=== PATIENT | male | born 1950 | race Caucasian/White ===

== ENCOUNTER 2017-10-19 23:07 | Emergency (ER) | payer OTHER ==
[~2017-10-19] VITALS: Ht 177.8 cm; Wt 115.2 kg
[~2017-10-19 23:07] MED LIST: ACET325 PO; ALBIPROI INH; ALBU90OI INH; AMLODIPINE-VAL1 EAC1 PO; B-COMPLEX WITH1 EAC1 PO; BUPR100 PO; BUPR150ER PO; CEPH500 PO; CIPR500 PO; CLIN300 PO; Cialis20 MG PO; FLUT1DIS5 INH; FLUT44OIA; GUAI600T33 PO; LAMO5 PO; MOMENI; Mucinex Dm Tab1 EAC1; OMEP20ER PO; PSEHYDGUAL; UNKNOWN B/P MED; Viagra100 MG PO
== END 2017-10-20 00:49 | disposition home or self-care (01) ==
LOC: ER 23:07
DX: S81.811A Laceration without foreign body, right lower leg, initial encounter (principal); Z23 Encounter for immunization; J45.909 Unspecified asthma, uncomplicated; I10 Essential (primary) hypertension; F17.210 Nicotine dependence, cigarettes, uncomplicated; Z88.6 Allergy status to analgesic agent; Z88.8 Allergy status to other drugs, medicaments and biological substances; Z79.899 Other long term (current) drug therapy; W10.9XXA Fall (on) (from) unspecified stairs and steps, initial encounter
CPT/HCPCS: 12002; 90471; 90714; 99283

== ENCOUNTER → 2018-06-11 | Outpatient (CLI) | payer OTHER ==
[2018-06-11 18:00] LABS: Microalbumin, Urine Quant. <5.000 mg/L (0.000-20.000); Protein, Urine Quantitative <5.0 mg/dL (0.0-11.9)
== END | disposition home or self-care (01) ==
LOC: LAB 16:53 → LAB SHORT 16:53
PROVIDERS: Internal Medicine Nephrology
DX: N18.3 Chronic kidney disease, stage 3 (moderate) (principal); D63.1 Anemia in chronic kidney disease; N25.81 Secondary hyperparathyroidism of renal origin; E55.9 Vitamin D deficiency, unspecified; E78.00 Pure hypercholesterolemia, unspecified; D52.8 Other folate deficiency anemias; D51.8 Other vitamin B12 deficiency anemias; D50.9 Iron deficiency anemia, unspecified; R94.5 Abnormal results of liver function studies; R94.6 Abnormal results of thyroid function studies; R79.9 Abnormal finding of blood chemistry, unspecified
CPT/HCPCS: 81050; 82043; 82570; 84156

== ENCOUNTER → 2018-07-19 | Outpatient (CLI) | payer OTHER ==
[2018-07-19 15:19] LABS: Adenovirus F 40/41 Not Detected (NOT DETECT); Astrovirus Not Detected (NOT DETECT); Campylobacter Sp Not Detected (NOT DETECT); Cryptosporidium Not Detected (NOT DETECT); Cyclospora Cayetanensis Not Detected (NOT DETECT); E. Coli O157 Not Detected (NOT DETECT); Entamoeba Histolytica Not Detected (NOT DETECT); Enteroaggregative E. coli-EAEC Not Detected (NOT DETECT); Enteropathogenic E. coli-EPEC Not Detected (NOT DETECT); Enterotoxigenic E. coli-ETEC Not Detected (NOT DETECT); Giardia Lamblia Not Detected (NOT DETECT); Norovirus GI/GII Not Detected (NOT DETECT); Plesiomonas Shigelloides Not Detected (NOT DETECT); Rotavirus A Not Detected (NOT DETECT); Salmonella Sp Not Detected (NOT DETECT); Sapovirus Not Detected (NOT DETECT); Shiga Toxin-prod E. coli-STEC Not Detected (NOT DETECT); Shigella/Enteroin E. coli-EIEC Not Detected (NOT DETECT); Vibrio Cholerae Not Detected (NOT DETECT); Vibrio Sp Not Detected (NOT DETECT); Yersinia Enterocolitica Not Detected (NOT DETECT)
== END | disposition home or self-care (01) ==
LOC: LAB SHORT 11:00 → LAB 11:00
PROVIDERS: Internal Medicine Nephrology
DX: R19.7 Diarrhea, unspecified (principal)
CPT/HCPCS: 87507

== ENCOUNTER → 2019-02-26 | Outpatient (CLI) | payer OTHER | LOC: LAB 14:39 → LAB SHORT 14:39 | DX: L71.8 Other rosacea (principal); L81.4 Other melanin hyperpigmentation; L82.1 Other seborrheic keratosis; D22.5 Melanocytic nevi of trunk; D22.71 Melanocytic nevi of right lower limb, including hip; D22.72 Melanocytic nevi of left lower limb, including hip; D48.5 Neoplasm of uncertain behavior of skin | CPT/HCPCS: 87081 ==

== ENCOUNTER → 2019-05-15 | Outpatient (CLI) | payer OTHER ==
[2019-05-15 14:40] LABS: Hemoglobin 15.3 g/dL (13.5-17.5); Mean Corpuscular HGB 32.8 pg (26.0-34.0); Mean Corpuscular Volume 96 fL (80-100); RDW Coefficient Variation 12.6 % (11.7-14.2); RDW Standard Deviation 44.7 fL (35.1-46.3); Red Blood Cell Count 4.67 M/mm3 (4.30-5.90); White Blood Cell Count 7.82 K/mm3 (4.00-11.30)
[2019-05-15 14:45] LABS: Alanine Aminotransfer (ALT/SGP 36 U/L (12-78); Albumin/Globulin Ratio 1.3 (0.8-1.8); Alk Phos 92 U/L (40-126); Anion Gap 12 mmol/L (6-16); Aspartate Aminotrans (AST/SGOT 28 U/L (12-37); Bilirubin, Total 0.9 mg/dL (0.1-1.0); Blood Urea Nitrogen 11 mg/dL (8-24); Bun/Creatinine Ratio 16.2 (12.0-20.0); CO2, Blood 23 mmol/L (21-32); Calcium, Blood 8.9 mg/dL (8.5-10.1); Chloride, Blood 107 mmol/L (98-108); Creatinine, Blood 0.68 mg/dL (0.60-1.20); Globulin, Blood 3.2 g/dL (2.2-4.0); Glomerular Filtration Rate >60 (60-); Glucose, Blood 102 mg/dL (70-99); Potassium, Blood 4.7 mmol/L (3.5-5.5); Sodium, Blood 142 mmol/L (136-145); Total Protein, Blood 7.2 g/dL (6.4-8.2)
[2019-05-15 16:27] LABS: Mean Platelet Volume 10.1 fL (9.1-12.4); Platelet Count 191 K/mm3 (150-400)
[2019-05-15 16:32] LABS: BASOPHILS PERCENT MAN 0 % (0-2); EOSINOPHILS ABSOLUTE MAN 1.48 K/mm3 (0.00-0.68); EOSINOPHILS PERCENT MAN 19 % (0-6); LYMPHOCYTES ABSOLUTE MAN 1.95 K/mm3 (0.84-5.20); LYMPHOCYTES PERCENT MAN 25 % (21-46); MONOCYTES ABSOLUTE MAN 0.39 K/mm3 (0.16-1.47); MONOCYTES PERCENT MAN 5 % (4-13); NEUTROPHILS ABSOLUTE MAN 3.98 K/mm3 (1.96-9.15); SEG NEUTROPHILS PERCENT MAN 51 % (41-73); TOTAL CELLS COUNTED 100
== END | disposition home or self-care (01) ==
LOC: LAB SHORT 14:29 → LAB EV 14:29
PROVIDERS: Physician Assistant Surgical
DX: R10.9 Unspecified abdominal pain (principal)
CPT/HCPCS: 80053; 83690; 85025

== ENCOUNTER → 2019-06-22 | Outpatient (CLI) | payer OTHER ==
[2019-06-22 16:41] LABS: Source, Urine Voided
[2019-06-22 19:13] LABS: Red Blood Cells, Urine 0-2 /hpf (0-2)
[2019-06-22 19:14] LABS: Bacteria Mod /hpf; Squamous Epithelial Cells Not Seen /hpf (Few)
== END | disposition home or self-care (01) ==
LOC: LAB 13:00 → LAB SHORT 13:00
PROVIDERS: Family Medicine
DX: R10.9 Unspecified abdominal pain (principal)
CPT/HCPCS: 81015

== ENCOUNTER → 2019-11-10 | Outpatient (CLI) | payer OTHER ==
[2019-11-10 17:33] LABS: BASOPHILS ABSOLUTE AUTO 0.05 K/mm3 (0.00-0.23); BASOPHILS PERCENT AUTO 1 % (0-2); EOSINOPHILS ABSOLUTE AUTO 0.45 K/mm3 (0.00-0.68); EOSINOPHILS PERCENT AUTO 7 % (0-6); Hematocrit 40.7 % (37.0-53.0); Hemoglobin 14.4 g/dL (13.5-17.5); IMMATURE GRAN ABSOLUTE AUTO 0.01 K/mm3 (0.00-0.10); IMMATURE GRAN PERCENT AUTO 0 % (0-1); LYMPHOCYTES ABSOLUTE AUTO 1.49 K/mm3 (0.84-5.20); LYMPHOCYTES PERCENT AUTO 22 % (21-46); MONOCYTES ABSOLUTE AUTO 0.55 K/mm3 (0.16-1.47); MONOCYTES PERCENT AUTO 8 % (4-13); Mean Corpuscular HGB 33.1 pg (26.0-34.0); Mean Corpuscular HGB Conc 35.4 g/dL (31.5-36.5); Mean Corpuscular Volume 94 fL (80-100); Mean Platelet Volume 9.5 fL (9.1-12.4); NEUTROPHILS ABSOLUTE AUTO 4.19 K/mm3 (1.96-9.15); NEUTROPHILS PERCENT AUTO 62 % (41-73); Platelet Count 257 K/mm3 (150-400); RDW Coefficient Variation 12.6 % (11.7-14.2); RDW Standard Deviation 43.6 fL (35.1-46.3); Red Blood Cell Count 4.35 M/mm3 (4.30-5.90); White Blood Cell Count 6.74 K/mm3 (4.00-11.30)
[2019-11-10 17:43] LABS: Alanine Aminotransfer (ALT/SGP 69 U/L (12-78); Albumin, Blood 4.2 g/dL (3.4-5.0); Albumin/Globulin Ratio 1.2 (0.8-1.8); Alk Phos 96 U/L (40-126); Anion Gap 10 mmol/L (6-16); Aspartate Aminotrans (AST/SGOT 33 U/L (12-37); Bilirubin, Total 0.5 mg/dL (0.1-1.0); Blood Urea Nitrogen 8 mg/dL (8-24); Bun/Creatinine Ratio 8.5 (12.0-20.0); CO2, Blood 26 mmol/L (21-32); Calcium, Blood 8.8 mg/dL (8.5-10.1); Chloride, Blood 106 mmol/L (98-108); Creatinine, Blood 0.94 mg/dL (0.60-1.20); Globulin, Blood 3.5 g/dL (2.2-4.0); Glomerular Filtration Rate >60 (60-); Glucose, Blood 106 mg/dL (70-99); Potassium, Blood 4.1 mmol/L (3.5-5.5); Sodium, Blood 142 mmol/L (136-145); Total Protein, Blood 7.7 g/dL (6.4-8.2)
== END | disposition home or self-care (01) ==
LOC: LAB SHORT 17:28 → LAB EV 17:28
PROVIDERS: Physician Assistant
DX: R10.9 Unspecified abdominal pain (principal)
CPT/HCPCS: 80053; 83690; 85025

== ENCOUNTER 2019-11-30 19:31 | Emergency (ER) | payer OTHER ==
[~2019-11-30] VITALS: Ht 177.8 cm; Wt 111.1 kg
[2019-11-30] MEDS ORDERED: LOSA25 PO (19:51)
== END 2019-11-30 22:16 | disposition home or self-care (01) ==
LOC: ER 19:31
DX: S01.21XA Laceration without foreign body of nose, initial encounter (principal); I10 Essential (primary) hypertension; J45.909 Unspecified asthma, uncomplicated; Z88.6 Allergy status to analgesic agent; Z88.8 Allergy status to other drugs, medicaments and biological substances; Z79.899 Other long term (current) drug therapy; F17.210 Nicotine dependence, cigarettes, uncomplicated; W19.XXXA Unspecified fall, initial encounter
CPT/HCPCS: 70450; 70486; 72125; 99284-25

== ENCOUNTER → 2020-04-03 | Outpatient (CLI) | payer OTHER ==
[~2020-04-03] MED LIST changes: +LOSA25 PO
== END | disposition home or self-care (01) ==
LOC: LAB EV 12:28 → LAB SHORT 12:28
DX: J40 Bronchitis, not specified as acute or chronic (principal); Z20.828 Contact with and (suspected) exposure to other viral communicable diseases
CPT/HCPCS: U0003

== ENCOUNTER 2024-05-28 11:12 | Emergency (ER) | payer OTHER ==
[~2024-05-28] VITALS: Ht 177.8 cm; Wt 90.7 kg
[2024-05-28 13:41] LABS: BASOPHILS ABSOLUTE AUTO 0.04 K/mm3 (0.00-0.23); BASOPHILS PERCENT AUTO 1 % (0-2); EOSINOPHILS ABSOLUTE AUTO 0.22 K/mm3 (0.00-0.68); EOSINOPHILS PERCENT AUTO 3 % (0-6); Hematocrit 40.5 % (37.0-53.0); IMMATURE GRAN ABSOLUTE AUTO 0.03 K/mm3 (0.00-0.10); IMMATURE GRAN PERCENT AUTO 0 % (0-1); LYMPHOCYTES ABSOLUTE AUTO 0.73 K/mm3 (0.84-5.20); LYMPHOCYTES PERCENT AUTO 9 % (21-46); MONOCYTES ABSOLUTE AUTO 0.61 K/mm3 (0.16-1.47); MONOCYTES PERCENT AUTO 8 % (4-13); Mean Corpuscular HGB 30.6 pg (26.0-34.0); Mean Corpuscular HGB Conc 34.6 g/dL (31.5-36.5); Mean Corpuscular Volume 89 fL (80-100); Mean Platelet Volume 9.6 fL (9.1-12.4); NEUTROPHILS ABSOLUTE AUTO 6.24 K/mm3 (1.96-9.15); NEUTROPHILS PERCENT AUTO 79 % (41-73); Platelet Count 224 K/mm3 (150-400); RDW Coefficient Variation 12.8 % (11.7-14.2); RDW Standard Deviation 41.8 fL (35.1-46.3); Red Blood Cell Count 4.57 M/mm3 (4.30-5.90); White Blood Cell Count 7.87 K/mm3 (4.00-11.30)
[2024-05-28 14:06] LABS: Bun/Creatinine Ratio 13.6 (12.0-20.0); Calcium, Blood 9.1 mg/dL (8.5-10.1); Creatinine, Blood 0.88 mg/dL (0.60-1.20); Free Thyroxine 1.2 ng/dL (0.70-1.60); Magnesium, Blood 2.9 mg/dL (1.6-2.4); Potassium, Blood 3.9 mmol/L (3.5-5.5); Thyroid Stimulating Hormone 1.37 uIU/mL (0.360-4.800)
[2024-05-28 15:07] LABS: Source, Urine Clean Catch
[2024-05-28 15:09] LABS: Appearance, Urine Clear (Clear); Bilirubin, Urine Neg (Neg); Blood, Urine 4+ (Neg); Color, Urine Yellow (P-Yellow); Glucose Qualitative, Urine Neg (Neg); Ketones, Urine 1+ (Neg); Leukocyte Esterase, Urine Neg (Neg); Nitrite, Urine Neg (Neg); Protein, Urine Neg (Neg); Urobilinogen, Urine NORM (Normal)
[2024-05-28 15:22] LABS: Red Blood Cells, Urine 25-50 /hpf (0-2); White Blood Cells, Urine 0-2 /hpf (0-5)
[2024-05-28 15:23] LABS: Bacteria Rare /hpf; Squamous Epithelial Cells Not Seen /hpf (Few)
[2024-05-28] MEDS ORDERED: ACET500 PO (16:55)
[2024-05-28] MEDS ORDERED: LIDO700A20 TOP (16:55)
[2024-05-29] MEDS ORDERED: SEROQUEL25 MG PO (10:04)
[2024-05-29 12:17] VITALS: BP 146/84
== END 2024-05-29 12:17 | disposition home or self-care (01) ==
LOC: ER 11:12
PROVIDERS: Emergency Medicine
DX: S06.30AA Unspecified focal traumatic brain injury with loss of consciousness status unknown, initial encounter (principal); M25.562 Pain in left knee; J45.909 Unspecified asthma, uncomplicated; I10 Essential (primary) hypertension; F17.210 Nicotine dependence, cigarettes, uncomplicated; W18.30XA Fall on same level, unspecified, initial encounter; Z79.899 Other long term (current) drug therapy; Z88.6 Allergy status to analgesic agent; Z88.1 Allergy status to other antibiotic agents
CPT/HCPCS: 70450; 73502; 74176; 80048; 81001; 83735; 84439; 84443; 85025; 97162; 97530; 99285-25

== ENCOUNTER 2024-06-04 16:13 | Emergency (ER) | payer OTHER ==
[~2024-06-04] VITALS: Ht 182.9 cm; Wt 106.6 kg
[~2024-06-04 16:13] MED LIST changes: +ACET500 PO; +LIDO700A20 TOP; +SEROQUEL25 MG PO
[2024-06-04 17:37] LABS: BASOPHILS ABSOLUTE AUTO 0.04 K/mm3 (0.00-0.23); BASOPHILS PERCENT AUTO 1 % (0-2); EOSINOPHILS ABSOLUTE AUTO 0.15 K/mm3 (0.00-0.68); EOSINOPHILS PERCENT AUTO 2 % (0-6); Hematocrit 39.3 % (37.0-53.0); Hemoglobin 13.5 g/dL (13.5-17.5); IMMATURE GRAN ABSOLUTE AUTO 0.04 K/mm3 (0.00-0.10); IMMATURE GRAN PERCENT AUTO 1 % (0-1); LYMPHOCYTES ABSOLUTE AUTO 1.13 K/mm3 (0.84-5.20); LYMPHOCYTES PERCENT AUTO 14 % (21-46); MONOCYTES ABSOLUTE AUTO 0.71 K/mm3 (0.16-1.47); MONOCYTES PERCENT AUTO 9 % (4-13); Mean Corpuscular HGB 30.8 pg (26.0-34.0); Mean Corpuscular HGB Conc 34.4 g/dL (31.5-36.5); Mean Corpuscular Volume 90 fL (80-100); Mean Platelet Volume 9.5 fL (9.1-12.4); NEUTROPHILS ABSOLUTE AUTO 6.31 K/mm3 (1.96-9.15); NEUTROPHILS PERCENT AUTO 75 % (41-73); Platelet Count 206 K/mm3 (150-400); RDW Coefficient Variation 12.8 % (11.7-14.2); RDW Standard Deviation 42.2 fL (35.1-46.3); Red Blood Cell Count 4.39 M/mm3 (4.30-5.90); White Blood Cell Count 8.38 K/mm3 (4.00-11.30)
[2024-06-04 17:40] LABS: CORONAVIRUS COVID-19 AG Negative (NEGATIVE); INFLUENZA A AG Negative (NEGATIVE); INFLUENZA B AG Negative (NEGATIVE)
[2024-06-04 18:04] LABS: Albumin, Blood 3.5 g/dL (3.4-5.0); Albumin/Globulin Ratio 0.9 (0.8-1.8); Bilirubin, Total 0.9 mg/dL (0.1-1.0); Bun/Creatinine Ratio 17.1 (12.0-20.0); Calcium, Blood 9.2 mg/dL (8.5-10.1); Creatinine, Blood 0.65 mg/dL (0.60-1.20); Globulin, Blood 3.8 g/dL (2.2-4.0); Potassium, Blood 3.9 mmol/L (3.5-5.5); Total Protein, Blood 7.3 g/dL (6.4-8.2)
[2024-06-04] MEDS ORDERED: Azithromycin 500 MG in NS 250 ML IV ONE (19:15)
[2024-06-04] MEDS ORDERED: CefTRIAXone Sodium 1,000 MG in NS 100 ML IV ONE (19:15)
[2024-06-04] MEDS ORDERED: DOXY100 PO (19:41)
[2024-06-04] MEDS ORDERED: AMOCLA875 PO (19:41)
[2024-06-04] MEDS ORDERED: Doxycycline Hyclate 100 MG TAB PO ONE (19:45)
[2024-06-04 20:30] VITALS: BP 146/73
== END 2024-06-04 20:55 | disposition home or self-care (01) ==
LOC: ER 16:13
PROVIDERS: Emergency Medicine
DX: J18.9 Pneumonia, unspecified organism (principal); J45.909 Unspecified asthma, uncomplicated; I10 Essential (primary) hypertension; F17.210 Nicotine dependence, cigarettes, uncomplicated; Z79.899 Other long term (current) drug therapy; Z88.6 Allergy status to analgesic agent; Z88.1 Allergy status to other antibiotic agents
CPT/HCPCS: 70450; 71045; 72125; 72128; 72131; 80053; 84484; 85025; 87428-QW; 93005; 93010; 96365; 99285-25; A9270; J0456; J0696; J7050

== ENCOUNTER 2024-06-06 11:20 | Inpatient (IN) | payer OTHER ==
[~2024-06-06] VITALS: Ht 182.9 cm; Wt 98.6 kg
[~2024-06-06 11:20] MED LIST changes: +AMOCLA875 PO; +DOXY100 PO
[2024-06-06] MEDS ORDERED: ESCI10 PO (11:35)
[2024-06-06] MEDS ORDERED: MEMANTINE HCL511 PO (11:35)
[2024-06-06] MEDS ORDERED: LORAZEPAM0.5 MG PO (11:35)
[2024-06-06] MEDS ORDERED: NS 1,000 ML IV SCH (11:35)
[2024-06-06 13:31] LABS: Influenza A, PCR NEGATIVE (NEGATIVE); Influenza B, PCR NEGATIVE (NEGATIVE); Resp Syncytial Virus, PCR NEGATIVE (NEGATIVE); SARS-Cov-2 (COVID-19) PCR, MMC NEGATIVE (NEGATIVE)
[2024-06-06 14:19] LABS: Albumin, Blood 3.2 g/dL (3.4-5.0); Albumin/Globulin Ratio 0.8 (0.8-1.8); Bilirubin, Total 1.5 mg/dL (0.1-1.0); Bun/Creatinine Ratio 22.5 (12.0-20.0); Calcium, Blood 8.8 mg/dL (8.5-10.1); Creatinine, Blood 1.02 mg/dL (0.60-1.20); Potassium, Blood 3.6 mmol/L (3.5-5.5); Total Protein, Blood 7.2 g/dL (6.4-8.2)
[2024-06-06 14:21] LABS: Hematocrit 39.3 % (37.0-53.0); Hemoglobin 13.5 g/dL (13.5-17.5); Mean Corpuscular HGB 30.4 pg (26.0-34.0); Mean Corpuscular HGB Conc 34.4 g/dL (31.5-36.5); Mean Corpuscular Volume 89 fL (80-100); Mean Platelet Volume 9.7 fL (9.1-12.4); Platelet Count 231 K/mm3 (150-400); RDW Coefficient Variation 13.1 % (11.7-14.2); RDW Standard Deviation 42.2 fL (35.1-46.3); Red Blood Cell Count 4.44 M/mm3 (4.30-5.90); White Blood Cell Count 5.01 K/mm3 (4.00-11.30)
[2024-06-06 14:41] LABS: BAND PERCENT MAN 5 % (0-8); BASOPHILS PERCENT MAN 0 % (0-2); EOSINOPHILS ABSOLUTE MAN 0.05 K/mm3 (0.00-0.68); EOSINOPHILS PERCENT MAN 1 % (0-6); LYMPHOCYTES ABSOLUTE MAN 0.25 K/mm3 (0.84-5.20); LYMPHOCYTES PERCENT MAN 5 % (21-46); MONOCYTES ABSOLUTE MAN 0.25 K/mm3 (0.16-1.47); MONOCYTES PERCENT MAN 5 % (4-13); NEUTROPHILS ABSOLUTE MAN 4.45 K/mm3 (1.96-9.15); SEG NEUTROPHILS PERCENT MAN 84 % (41-73); TOTAL CELLS COUNTED 100
[2024-06-06] MEDS ORDERED: CefTRIAXone Sodium 1,000 MG in NS 50 ML IV ONE (15:40)
[2024-06-06] MEDS ORDERED: FLU VACC TS2024-25(6MOS UP)/PF 45 MCG/0.5 ML SYRINGE IM SCH (16:20)
[2024-06-06] MEDS ORDERED: Doxycycline Hyclate 100 MG in Dextrose 5% 250 ML IV SCH (16:28)
[2024-06-06] MEDS ORDERED: Lactated Ringer's 1,000 ML IV SCH (16:30)
[2024-06-06 19:00] LABS: Adenovirus Not Detected (NOT DETECT); Bordetella pertussis Not Detected (NOT DETECT); Chlamydophila pneumoniae Not Detected (NOT DETECT); Coronavirus 229E Not Detected (NOT DETECT); Coronavirus HKU1 Not Detected (NOT DETECT); Coronavirus NL63 Not Detected (NOT DETECT); Coronavirus OC43 Not Detected (NOT DETECT); Human Metapneumovirus Not Detected (NOT DETECT); Human Rhinovirus/Enterovirus Detected (NOT DETECT); Influenza A/2009-H1 Not Detected (NOT DETECT); Influenza A/H1 Not Detected (NOT DETECT); Influenza A/H3 Not Detected (NOT DETECT); Influenza B Not Detected (NOT DETECT); Mycoplasma pneumoniae Not Detected (NOT DETECT); Parainfluenza Virus 1 Not Detected (NOT DETECT); Parainfluenza Virus 2 Not Detected (NOT DETECT); Parainfluenza Virus 3 Not Detected (NOT DETECT); Parainfluenza Virus 4 Not Detected (NOT DETECT); Respiratory Syncytial Virus Not Detected (NOT DETECT); SARS-Cov-2 (COVID-19), BioFire Not Detected (NOT DETECT)
[2024-06-06 19:37] LABS: Base Excess Venous 0.5 mmol/L; Bicarbonate Venous 23.9 mmol/L (24.0-30.0); PCO2 Venous 41.4 mmHg (38-42)
[2024-06-06] MEDS ORDERED: Acetaminophen 325 MG TABLET PO PRN (19:55)
[2024-06-06 20:57] VITALS: BP 152/87
[2024-06-06] MEDS ORDERED: Losartan Potassium 25 MG Tab PO SCH (21:00)
[2024-06-06] MEDS ORDERED: Lactobacil 2-S.Thermo-Bifido 1 1 Cap PO SCH (21:00)
[2024-06-06] MEDS ORDERED: DOXYCYCLINE HY100 M1 PO (23:38)
[2024-06-07] MEDS ORDERED: FentaNYL Citrate 50 MCG/ML 2 ML Injection IV PRN (03:25)
[2024-06-07 04:27] VITALS: BP 148/72
--- NOTE | 2024-06-07 04:52 | NUR ---
SUMMARY: PT A/O TO SELF AND FAMILY W/FREQ REMINDERS REQ'D RE: SITUATION AND PLACE. HE RESTLESS, FIGITY AND UNAWARE OF LIMITATIONS W/BED ALARM ON FOR IMPULSIVITY AND FALL RISK. PT HAS INCREASED WEAKNESS AND REMAINS BEDREST AFTER REQUESTING TO SIT IN CHAIR BUT BEING UNABLE TO SAFELY COMMPREHEND PIVOT T/F INSTRUCTIONS. AND HE'S DENIED NEEDING THE URINAL DESPITE INCONTINENCE T/O NOCTE AND ATTENDS/LINEN CHANGES PRN. LS ARE COARSE W/SCATTERED WHEEZES AND GROUND GLASS OPACITY PER CXR. WET CONGESTED ELEMENTARY EDUCATION TUTOR COUGH PERSISTS BUT SPO2 WNL ON RA W/O S/S RESP DISTRESS. LR INFUSED THEN WAS SL'D AND IV ABX RECEIVED PER EMAR. HE WAS FEBRILE IN ER W/TYLENOL PROVIDED FOR GOOD AFFECT BUT PT REPORTED UNRELIEVED LOW BACK PAIN. EGGCRATE WAS PLACED TO MATTRESS AND FENTANYL WAS RX'D AND RECEIVED FOR GOOD EFFECT. PT FINALLY FELL ASLEEP AND CONT'S TO APPEAR COMFORTABLE AT THIS TIME. VSS/AFEBRILE, NO ACUTE CHANGES. WCTM AND REPORT TO DAY RN.
[2024-06-07 06:59] LABS: BASOPHILS ABSOLUTE AUTO 0.02 K/mm3 (0.00-0.23); BASOPHILS PERCENT AUTO 0 % (0-2); EOSINOPHILS PERCENT AUTO 5 % (0-6); Hematocrit 34.1 % (37.0-53.0); IMMATURE GRAN ABSOLUTE AUTO 0.02 K/mm3 (0.00-0.10); IMMATURE GRAN PERCENT AUTO 0 % (0-1); LYMPHOCYTES ABSOLUTE AUTO 1.03 K/mm3 (0.84-5.20); LYMPHOCYTES PERCENT AUTO 17 % (21-46); MONOCYTES ABSOLUTE AUTO 0.72 K/mm3 (0.16-1.47); MONOCYTES PERCENT AUTO 12 % (4-13); Mean Corpuscular HGB Conc 35.2 g/dL (31.5-36.5); Mean Corpuscular Volume 88 fL (80-100); Mean Platelet Volume 9.4 fL (9.1-12.4); NEUTROPHILS ABSOLUTE AUTO 3.97 K/mm3 (1.96-9.15); NEUTROPHILS PERCENT AUTO 66 % (41-73); Platelet Count 214 K/mm3 (150-400); RDW Coefficient Variation 13.2 % (11.7-14.2); RDW Standard Deviation 42.5 fL (35.1-46.3); Red Blood Cell Count 3.87 M/mm3 (4.30-5.90); White Blood Cell Count 6.06 K/mm3 (4.00-11.30)
[2024-06-07 07:26] LABS: Albumin, Blood 2.7 g/dL (3.4-5.0); Albumin/Globulin Ratio 0.8 (0.8-1.8); Bilirubin, Total 0.9 mg/dL (0.1-1.0); Bun/Creatinine Ratio 14.1 (12.0-20.0); Calcium, Blood 8.4 mg/dL (8.5-10.1); Creatinine, Blood 0.78 mg/dL (0.60-1.20); Globulin, Blood 3.4 g/dL (2.2-4.0); Potassium, Blood 3.6 mmol/L (3.5-5.5); Total Protein, Blood 6.1 g/dL (6.4-8.2)
[2024-06-07 07:29] VITALS: BP 153/72
--- NOTE | 2024-06-07 07:38 | NUR ---
ASSUMED CARE OF PATIENT. LYING SUPINE, SLEEPING. NO ACUTE CONCERNS.
[2024-06-07] MEDS ORDERED: buPROPion HCL 150 MG TAB.SR.12H PO SCH (09:00)
[2024-06-07] MEDS ORDERED: Memantine HCL 5 MG Tab PO SCH (09:00)
[2024-06-07] MEDS ORDERED: CefTRIAXone Sodium 1,000 MG in NS 100 ML IV SCH (09:00)
[2024-06-07] MEDS ORDERED: Enoxaparin 40 MG/0.4 ML SYR SC SCH (09:00)
[2024-06-07] MEDS ORDERED: QUEtiapine Fumarate 25 MG Tab PO SCH (09:00)
[2024-06-07] MEDS ORDERED: Citalopram Hydrobromide 20 MG Tab PO SCH (09:00)
[2024-06-07 15:42] VITALS: BP 116/63
--- NOTE | 2024-06-07 17:23 | NUR ---
SPEECH THERAPY SCHEDULE DID NOT ALLOW FOR REPEAT VISIT. PER DR MELGAR, OKAY TO EAT.
[2024-06-07 19:20] VITALS: BP 120/57
--- NOTE | 2024-06-07 19:40 | NUR ---
END OF DAY SHIFT SUMMARY: A&Ox2-3. PLEASANT AND COOPERATIVE WITH CARE. DOES NOT UTILIZE CALL LIGHT; DAUGHTER, JOSE, IN ROOM ALL DAY, ADVOCATING HIS NEEDS. INCONTINENT; LOG ROLL CHANGES REQUIRED. UNABLE TO BE SEEN BY ST; BEDSIDE EVAL DONE AND YIELDED NO SWALLOW ISSUES; DINNER PROVIDED WITHOUT CONCERN. MEDS WHOLE WITH FLUIDS. MEDICATED x1 PRN PAIN TODAY; SLEPT MUCH OF DAY AFTER RECEIVING PAIN MEDS. BED IN LOWEST POSITION, CALL LIGHT WITHIN REACH, ALL NEEDS MET. REPORT TO ONCOMING NURSE.
[2024-06-07] MEDS ORDERED: QUEtiapine Fumarate 25 MG Tab PO PRN (22:50)
[2024-06-08 03:29] VITALS: BP 131/64
--- NOTE | 2024-06-08 05:05 | NUR ---
DIRECTOR OF ASSISTED LIVING SUMMARY: PT A&O TO SELF AND FAMILY. FAMILY REPORTS AT BEGINNING OF SHIFT THAT PT HAS HAD AN INCREASE IN VISUAL HALLUCINATIONS. PT NOTED TO HAVE INCREASED AGITATION SHIFT PROGRESSED. PT NOTED TO BE PULLING OFF BLANKETS, TALKING ABOUT OBJECTS THAT WERE NOT PRESENT AND DANGLING FEET OFF EDGE OF BED. BED ALARM ON. NEW ORDER RECEIVED FOR: SEROQUEL 25MG PO Q6HRS PRN AGITATION. ADMINISTERED PRN SEROQUEL AT APPROX 2309; EFFECTIVE. PT SLEEPING ON AND OFF THE REST OF SHIFT. POWER GLIDE TO REZA. NO ADVERSE SIDE EFFECTS TO ABO TX. AFEBRILE. MEDICATED X2 WITH PRN FENTANYL 25MCG PER EMAR ORDER; EFFECTIVE. DROPLET CONTACT ISOLATION PRECAUTIONS IN PLACE. CARES CONTINUE ORDERED.
[2024-06-08 07:12] LABS: BASOPHILS ABSOLUTE AUTO 0.02 K/mm3 (0.00-0.23); BASOPHILS PERCENT AUTO 0 % (0-2); EOSINOPHILS ABSOLUTE AUTO 0.33 K/mm3 (0.00-0.68); EOSINOPHILS PERCENT AUTO 5 % (0-6); Hematocrit 33.3 % (37.0-53.0); Hemoglobin 11.7 g/dL (13.5-17.5); IMMATURE GRAN ABSOLUTE AUTO 0.02 K/mm3 (0.00-0.10); IMMATURE GRAN PERCENT AUTO 0 % (0-1); LYMPHOCYTES ABSOLUTE AUTO 0.95 K/mm3 (0.84-5.20); LYMPHOCYTES PERCENT AUTO 14 % (21-46); MONOCYTES ABSOLUTE AUTO 0.76 K/mm3 (0.16-1.47); MONOCYTES PERCENT AUTO 11 % (4-13); Mean Corpuscular HGB 30.8 pg (26.0-34.0); Mean Corpuscular HGB Conc 35.1 g/dL (31.5-36.5); Mean Corpuscular Volume 88 fL (80-100); Mean Platelet Volume 9.3 fL (9.1-12.4); NEUTROPHILS ABSOLUTE AUTO 4.85 K/mm3 (1.96-9.15); NEUTROPHILS PERCENT AUTO 70 % (41-73); Platelet Count 218 K/mm3 (150-400); RDW Coefficient Variation 13.1 % (11.7-14.2); RDW Standard Deviation 41.8 fL (35.1-46.3); White Blood Cell Count 6.93 K/mm3 (4.00-11.30)
[2024-06-08 07:28] LABS: Bun/Creatinine Ratio 11.4 (12.0-20.0); Calcium, Blood 8.4 mg/dL (8.5-10.1); Creatinine, Blood 0.7 mg/dL (0.60-1.20); Potassium, Blood 3.3 mmol/L (3.5-5.5)
[2024-06-08 15:07] VITALS: BP 111/60
[2024-06-08 15:18] LABS: BASOPHILS ABSOLUTE AUTO 0.02 K/mm3 (0.00-0.23); BASOPHILS PERCENT AUTO 0 % (0-2); EOSINOPHILS ABSOLUTE AUTO 0.33 K/mm3 (0.00-0.68); EOSINOPHILS PERCENT AUTO 4 % (0-6); Hematocrit 35.4 % (37.0-53.0); Hemoglobin 12.3 g/dL (13.5-17.5); IMMATURE GRAN ABSOLUTE AUTO 0.03 K/mm3 (0.00-0.10); IMMATURE GRAN PERCENT AUTO 0 % (0-1); LYMPHOCYTES ABSOLUTE AUTO 1.13 K/mm3 (0.84-5.20); LYMPHOCYTES PERCENT AUTO 13 % (21-46); MONOCYTES ABSOLUTE AUTO 0.97 K/mm3 (0.16-1.47); MONOCYTES PERCENT AUTO 12 % (4-13); Mean Corpuscular HGB 30.6 pg (26.0-34.0); Mean Corpuscular HGB Conc 34.7 g/dL (31.5-36.5); Mean Corpuscular Volume 88 fL (80-100); Mean Platelet Volume 9.8 fL (9.1-12.4); NEUTROPHILS ABSOLUTE AUTO 5.96 K/mm3 (1.96-9.15); NEUTROPHILS PERCENT AUTO 71 % (41-73); Platelet Count 274 K/mm3 (150-400); RDW Coefficient Variation 13.1 % (11.7-14.2); RDW Standard Deviation 42.2 fL (35.1-46.3); Red Blood Cell Count 4.02 M/mm3 (4.30-5.90); White Blood Cell Count 8.44 K/mm3 (4.00-11.30)
[2024-06-08 15:40] LABS: IMMATURE RETIC FRACTION 10.4 % (2.3-16.0); RETIC HGB EQUIVALENT 28.9 pg (28.20-36.60); RETICULOCYTE ABSOLUTE 0.0569 M/mm3 (0.0200-0.1100); RETICULOCYTE COUNT PERCENT 1.44 % (0.50-2.50)
[2024-06-08 16:17] LABS: Base Excess Venous -0.7 mmol/L; PCO2 Venous 37.4 mmHg (38-42); pH Blood Venous 7.41 (7.34-7.37)
[2024-06-08 16:35] LABS: Free Thyroxine 1.5 ng/dL (0.70-1.60); Percent Saturation 18.2 % (20.0-50.0)
[2024-06-08 16:55] LABS: Albumin/Globulin Ratio 0.8 (0.8-1.8); Bilirubin, Total 0.6 mg/dL (0.1-1.0); Bun/Creatinine Ratio 12.4 (12.0-20.0); Calcium, Blood 8.8 mg/dL (8.5-10.1); Creatinine, Blood 0.97 mg/dL (0.60-1.20); Globulin, Blood 3.8 g/dL (2.2-4.0); Potassium, Blood 3.5 mmol/L (3.5-5.5); Thyroid Stimulating Hormone 1.6 uIU/mL (0.360-4.800); Total Protein, Blood 6.8 g/dL (6.4-8.2)
--- NOTE | 2024-06-08 17:54 | NUR ---
SHIFT SUMMARY PT ORIENTED TO SELF AND FAMILY, LATER THIS SHIFT PT DIDN'T RECOGNIZE FAMILY, DR. MELGAR NOTIFIED, DR. MELGAR CAME TO ASSESS PT. DR. MELGAR ORDERED ADDITIONAL LABS. PT ADMITTED DUE TO SEVERE SEPSIS. PT AMULATES WITH GB AND WALKER, DIFFICULT TO REORIENTATE PT, CHAIR ALARM ON. PT WORKED WITH PT/OT. PT WORKED WITH SPEECH THIS AM. SPEECH REPORTED PT TAKES HIS PILLS CRUSHED IN APPLESAUCE. PT IS INC. OF URINE. PT WEARING ATTENDS. FAMILY AT BEDSIDE. PT IN BED, BED AT LOWEST POSITION. CALL LIGHT IN REACH. PT RECEIVED ANTIBIOTICS TODAY. VSS. BED ALARM ON.
[2024-06-08 19:45] VITALS: BP 114/40
[2024-06-09 04:38] VITALS: BP 137/88
--- NOTE | 2024-06-09 05:02 | NUR ---
AAO TO SELF WITH MUMBLED SPEECH. MAX ASSIST X1 WITH WALKER. VALERY GOMES. RA. INCONTINENT OF URINE AND BM. MEDS CRUSHED IN APPLESAUCE. WORKING WITH PT/OT. SEROQUEL PRN FOR RESTLESS, GIVEN @ 0445 WITH TYLENOL FOR LOWER BACK PAIN.
[2024-06-09 05:59] LABS: BASOPHILS ABSOLUTE AUTO 0.02 K/mm3 (0.00-0.23); BASOPHILS PERCENT AUTO 0 % (0-2); EOSINOPHILS ABSOLUTE AUTO 0.41 K/mm3 (0.00-0.68); EOSINOPHILS PERCENT AUTO 6 % (0-6); Hematocrit 32.2 % (37.0-53.0); Hemoglobin 11.2 g/dL (13.5-17.5); IMMATURE GRAN ABSOLUTE AUTO 0.03 K/mm3 (0.00-0.10); IMMATURE GRAN PERCENT AUTO 0 % (0-1); LYMPHOCYTES ABSOLUTE AUTO 1.16 K/mm3 (0.84-5.20); LYMPHOCYTES PERCENT AUTO 17 % (21-46); MONOCYTES ABSOLUTE AUTO 0.72 K/mm3 (0.16-1.47); MONOCYTES PERCENT AUTO 11 % (4-13); Mean Corpuscular HGB 30.5 pg (26.0-34.0); Mean Corpuscular HGB Conc 34.8 g/dL (31.5-36.5); Mean Corpuscular Volume 88 fL (80-100); Mean Platelet Volume 9.5 fL (9.1-12.4); NEUTROPHILS ABSOLUTE AUTO 4.46 K/mm3 (1.96-9.15); NEUTROPHILS PERCENT AUTO 66 % (41-73); Platelet Count 237 K/mm3 (150-400); Red Blood Cell Count 3.67 M/mm3 (4.30-5.90)
[2024-06-09 07:15] VITALS: BP 116/56
[2024-06-09 08:30] LABS: Bun/Creatinine Ratio 11.6 (12.0-20.0); Calcium, Blood 8.6 mg/dL (8.5-10.1); Creatinine, Blood 0.78 mg/dL (0.60-1.20); Potassium, Blood 3.3 mmol/L (3.5-5.5)
[2024-06-09] MEDS ORDERED: Folic Acid 1 MG TAB PO SCH (10:00)
[2024-06-09] MEDS ORDERED: Potassium Chloride 20 MEQ TabCR PO ONE (10:00)
[2024-06-09] MEDS ORDERED: QUEtiapine Fumarate 25 MG Tab PO PRN (11:20)
[2024-06-09] MEDS ORDERED: Lactated Ringer's 1,000 ML IV SCH (11:25)
[2024-06-09] MEDS ORDERED: FentaNYL Citrate 50 MCG/ML 2 ML Injection IV PRN (11:25)
[2024-06-09 15:33] VITALS: BP 103/50
--- NOTE | 2024-06-09 18:30 | NUR ---
DAY SHIFT SUMMARY: NO ACUTE EVENTS TO REPORT THIS SHIFT. PT ALERT; ORIENTED TO SELF AND FAMILY; CALM AND COOPERATIVE WITH CARE. MEDICATED FOR BACK PAIN PER EMAR. ASPIRATION PRECAUTIONS; PO MEDS CRUSHED IN APPLESAUCE. PT SLEEPY/DROWSY IN AM; MUCH MORE AWAKE AND INTERACTIVE IN PM. ADDITIONAL IV FLUIDS ADDED THIS SHIFT R/T DEHYDRATION. IV ABX CONTINUING. BED LOW & LOCKED; CALL LIGHT IN REACH. WCTM.
[2024-06-09 19:42] VITALS: BP 128/58
[2024-06-09] MEDS ORDERED: QUEtiapine Fumarate 25 MG Tab PO SCH (20:00)
[2024-06-10 03:34] VITALS: BP 138/68
[2024-06-10 06:00] LABS: BASOPHILS ABSOLUTE AUTO 0.02 K/mm3 (0.00-0.23); BASOPHILS PERCENT AUTO 0 % (0-2); EOSINOPHILS ABSOLUTE AUTO 0.43 K/mm3 (0.00-0.68); EOSINOPHILS PERCENT AUTO 7 % (0-6); Hematocrit 31.1 % (37.0-53.0); Hemoglobin 10.8 g/dL (13.5-17.5); IMMATURE GRAN ABSOLUTE AUTO 0.02 K/mm3 (0.00-0.10); IMMATURE GRAN PERCENT AUTO 0 % (0-1); LYMPHOCYTES ABSOLUTE AUTO 1.18 K/mm3 (0.84-5.20); LYMPHOCYTES PERCENT AUTO 20 % (21-46); MONOCYTES ABSOLUTE AUTO 0.58 K/mm3 (0.16-1.47); MONOCYTES PERCENT AUTO 10 % (4-13); Mean Corpuscular HGB 30.8 pg (26.0-34.0); Mean Corpuscular HGB Conc 34.7 g/dL (31.5-36.5); Mean Corpuscular Volume 89 fL (80-100); Mean Platelet Volume 9.5 fL (9.1-12.4); NEUTROPHILS PERCENT AUTO 62 % (41-73); Platelet Count 248 K/mm3 (150-400); RDW Coefficient Variation 13.2 % (11.7-14.2); RDW Standard Deviation 42.4 fL (35.1-46.3); Red Blood Cell Count 3.51 M/mm3 (4.30-5.90); White Blood Cell Count 5.83 K/mm3 (4.00-11.30)
--- NOTE | 2024-06-10 06:28 | NUR ---
SHIFT SUMMARY UPON START OF SHIFT, PT UP IN BED VISITING WITH HIS SON. PT CONTINUES TO FORGET WHERE HE IS, DEMANDING HE NEEDS TO GET OUT OF THIS CAGE AND GET HOME. PT REORIENTATED TO LOCATION AND SITUATION. PT STATED HE NEEDED TO USE THE BATHROOM. OFFERED URINAL, THEN PT STATED HE NEEDED TO WAIT. THIS RN MENTIONED TO PT THAT HIS BRIEF MAY NEED TO BE CHANGED. PT REFUSED TO HAVE BRIEF CHANGED AND DENIED NEED TO VOID. APPROX 0100, PT BEGAN MOANING IN HIS SLEEP. PT SEEMED OTHERWISE UNDISTURBED. PT MEDICATED FOR PAIN 0404. STATES HE IS AROUND A 7 ON FACES SCALE. 0624 PT SLEEPING COMFORTABLY.
[2024-06-10 06:35] LABS: Albumin, Blood 2.5 g/dL (3.4-5.0); Albumin/Globulin Ratio 0.8 (0.8-1.8); Bilirubin, Total 0.5 mg/dL (0.1-1.0); Bun/Creatinine Ratio 14.2 (12.0-20.0); Calcium, Blood 8.8 mg/dL (8.5-10.1); Creatinine, Blood 0.7 mg/dL (0.60-1.20); Globulin, Blood 3.3 g/dL (2.2-4.0); Potassium, Blood 3.4 mmol/L (3.5-5.5); Total Protein, Blood 5.8 g/dL (6.4-8.2)
[2024-06-10 07:46] VITALS: BP 111/53
[2024-06-10] MEDS ORDERED: Potassium Chl 10MEQ/Water100ML 100 ML IV SCH (08:45)
[2024-06-10] MEDS ORDERED: Lactated Ringer's 1,000 ML IV SCH (13:25)
[2024-06-10 15:11] VITALS: BP 123/53
--- NOTE | 2024-06-10 17:58 | NUR ---
SHIFT SUMMARY PATIENT ALERT AND INTERACTIVE BUT FORGETFUL. PATIENT IMPULSIVE WITH GETTING UP TO GO TO THE BATHROOM. PATIENT ABLE TO WALK TO THE BATHROOM WITH WALKER, GAIT BELT, STAND BY ASSIST AND VERBAL CUEING TO PICK FEET UP. PATIENT ABLE TO FEED SELF WITH MEAL SET UP. 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 BED ALARM AND CHAIR ALARM USED. PATIENT CONTINUES TO HAVE A MOIST COUGH AT TIMES THAT CLEARS. NO FENTANYL OR PRN SEROQUEL GIVEN TODAY. PATIENT AWAKE MOST OF THE DAY.
[2024-06-10 19:46] VITALS: BP 142/74
[2024-06-11 03:47] VITALS: BP 145/65
--- NOTE | 2024-06-11 04:33 | NUR ---
SHIFT SUMMARY PT ALERT ORIENTED TO SELF AND VERY FORGETFUL. HE HASNT HAD ANY EPISODES OF TRYING TO GET OUT OF BED. REQUIRES SBA WITH WALKER TO GET UP. HE HAS HIS BED ALARM ON AND CALL LIGHT IN REACH. C/O BACK PAIN MEDICATED WITH FENTANYL WITH GOOD PAIN RELIEF. HES INC OF URINE AND WEARS BRIEFS. HE FINISHED HIS ONE BAG OF LR AND IS NOW SL. HE HAS A POWER GLIDE TO HIS RT UPPER ARM THAT IS POSITIONAL. REMAINS ON DROPLET ISOLATION FOR RHINOVIRUS. REMAINS ON ROCEPHIN QDAY FOR PNEUMONIA. VSS ON RA SATTING AT 94%. RESTING IN BED AT THIS TIME
[2024-06-11 05:19] LABS: BASOPHILS ABSOLUTE AUTO 0.03 K/mm3 (0.00-0.23); BASOPHILS PERCENT AUTO 1 % (0-2); EOSINOPHILS ABSOLUTE AUTO 0.37 K/mm3 (0.00-0.68); EOSINOPHILS PERCENT AUTO 6 % (0-6); Hematocrit 31.6 % (37.0-53.0); Hemoglobin 10.8 g/dL (13.5-17.5); IMMATURE GRAN ABSOLUTE AUTO 0.03 K/mm3 (0.00-0.10); IMMATURE GRAN PERCENT AUTO 1 % (0-1); LYMPHOCYTES ABSOLUTE AUTO 1.54 K/mm3 (0.84-5.20); LYMPHOCYTES PERCENT AUTO 25 % (21-46); MONOCYTES ABSOLUTE AUTO 0.69 K/mm3 (0.16-1.47); MONOCYTES PERCENT AUTO 11 % (4-13); Mean Corpuscular HGB 30.3 pg (26.0-34.0); Mean Corpuscular HGB Conc 34.2 g/dL (31.5-36.5); Mean Corpuscular Volume 89 fL (80-100); Mean Platelet Volume 9.5 fL (9.1-12.4); NEUTROPHILS PERCENT AUTO 57 % (41-73); Platelet Count 269 K/mm3 (150-400); RDW Coefficient Variation 13.2 % (11.7-14.2); RDW Standard Deviation 42.5 fL (35.1-46.3); Red Blood Cell Count 3.57 M/mm3 (4.30-5.90); White Blood Cell Count 6.16 K/mm3 (4.00-11.30)
[2024-06-11 05:51] LABS: Albumin, Blood 2.6 g/dL (3.4-5.0); Albumin/Globulin Ratio 0.8 (0.8-1.8); Bilirubin, Total 0.4 mg/dL (0.1-1.0); Bun/Creatinine Ratio 15.2 (12.0-20.0); Calcium, Blood 8.7 mg/dL (8.5-10.1); Creatinine, Blood 0.66 mg/dL (0.60-1.20); Globulin, Blood 3.3 g/dL (2.2-4.0); Potassium, Blood 3.8 mmol/L (3.5-5.5); Total Protein, Blood 5.9 g/dL (6.4-8.2)
[2024-06-11 07:45] VITALS: BP 143/76
[2024-06-11 15:01] VITALS: BP 157/77
--- NOTE | 2024-06-11 18:44 | NUR ---
SHIFT SUMMARY PATIENT ALERT AND INTERACTIVE BUT FORGETFUL. PATIENT AMBULATING TO BATHROOM WITH WALKER, GATE BELT, AND MINIMAL ASSISTANCE. PATIENT NEEDING CUING WHILE WALKING BUT IMPROVING THROUGHOUT SHIFT. IV MEDICATIONS CHANGED TO ORAL. POWERGLIDE REMOVED BECAUSE OF OCCLUSION. MD STATES THAT NO IV NEEDED.
[2024-06-11 19:26] VITALS: BP 139/71
[2024-06-12 02:40] VITALS: BP 140/75
[2024-06-12] MEDS ORDERED: Bisacodyl 5 MG TabEC PO PRN (03:40)
--- NOTE | 2024-06-12 05:36 | NUR ---
SHIFT SUMMARY NOC PT A/O TO SELF AND FAMILY. TAKES REDIRECTION AND PATIENCE, BUT PLEASANTLY CONFUSED AND COOPERATIVE WITH CARE. VSS. PT HAD MOMENT OF AGITATION IN EARLY AM BUT CALMED DOWN AFTER BEING REASSURED AND REORIENTED TO BEING IN HOSPITAL. ON DROPLET ISOLATION FOR RHINOVIRUS. PT NOW ON PO ABX. PT HAS SNF REFERRALS PENDING IN [facility], AND [facility]. PT CURRENTLY RESTING WITH BED IN LOWEST POSITION, AND CALL LIGHT WITHIN REACH.
[2024-06-12 07:02] LABS: BASOPHILS ABSOLUTE AUTO 0.05 K/mm3 (0.00-0.23); BASOPHILS PERCENT AUTO 1 % (0-2); EOSINOPHILS ABSOLUTE AUTO 0.44 K/mm3 (0.00-0.68); EOSINOPHILS PERCENT AUTO 6 % (0-6); Hematocrit 34.8 % (37.0-53.0); Hemoglobin 11.5 g/dL (13.5-17.5); IMMATURE GRAN ABSOLUTE AUTO 0.03 K/mm3 (0.00-0.10); IMMATURE GRAN PERCENT AUTO 0 % (0-1); LYMPHOCYTES ABSOLUTE AUTO 1.55 K/mm3 (0.84-5.20); LYMPHOCYTES PERCENT AUTO 22 % (21-46); MONOCYTES ABSOLUTE AUTO 0.62 K/mm3 (0.16-1.47); MONOCYTES PERCENT AUTO 9 % (4-13); Mean Corpuscular HGB 29.6 pg (26.0-34.0); Mean Corpuscular Volume 90 fL (80-100); Mean Platelet Volume 9.8 fL (9.1-12.4); NEUTROPHILS ABSOLUTE AUTO 4.42 K/mm3 (1.96-9.15); NEUTROPHILS PERCENT AUTO 62 % (41-73); Platelet Count 289 K/mm3 (150-400); RDW Coefficient Variation 13.2 % (11.7-14.2); RDW Standard Deviation 43.6 fL (35.1-46.3); Red Blood Cell Count 3.88 M/mm3 (4.30-5.90); White Blood Cell Count 7.11 K/mm3 (4.00-11.30)
[2024-06-12 07:18] LABS: Albumin, Blood 2.8 g/dL (3.4-5.0); Albumin/Globulin Ratio 0.8 (0.8-1.8); Bilirubin, Total 0.7 mg/dL (0.1-1.0); Bun/Creatinine Ratio 13.2 (12.0-20.0); Calcium, Blood 8.8 mg/dL (8.5-10.1); Creatinine, Blood 0.61 mg/dL (0.60-1.20); Globulin, Blood 3.5 g/dL (2.2-4.0); Potassium, Blood 3.7 mmol/L (3.5-5.5); Total Protein, Blood 6.3 g/dL (6.4-8.2)
[2024-06-12 07:30] VITALS: BP 151/80
[2024-06-12] MEDS ORDERED: Polyethylene Glycol 3350 17 gm PO SCH (09:00)
[2024-06-12] MEDS ORDERED: Cefpodoxime Proxetil 200 MG Tab PO SCH (09:00)
[2024-06-12] MEDS ORDERED: Bisacodyl 5 MG TabEC PO SCH (09:00)
[2024-06-12] MEDS ORDERED: Tamsulosin HCl 0.4 MG Cap PO SCH (09:00)
--- NOTE | 2024-06-12 14:40 | NUR ---
REPORT RECEIVED VERIFIED A/O X 2 BUT IS CONFUSED ON TIME OR WHY HE IS HERE. PT SO FAR HAS BEEN VERY COOPERATIVE AND DIRECTABLE, ASSISTED TO THE BATHROOM AND THEN TO CHAIR. PTHAD NO PROBLEMSFEEDING SELF. 1015 ASSISTED BACK TO BED.
[2024-06-12 15:30] VITALS: BP 109/55
--- NOTE | 2024-06-12 18:48 | NUR ---
PT DID VERY WELL TODAY, WAS ASSITED TO BATHROOM WHERE HE HAD VERY LARGE BM. PT STATED HE FELT MUCH BETTER, PT SEEMED LESS ANXIOUS AFTER BM. PT UP IN CHAIR FOR REMAINEDER OF SHIFT, HAD CALL LIGHT WITHIN REACH AND CHAIR ALARM ACTIVE. FAMILY AT BEDSIDE FROM TIME TO TIME.
[2024-06-12 19:51] VITALS: BP 111/63
--- NOTE | 2024-06-13 04:52 | NUR ---
SHIFT SUMMARY NOC PT A/O TO SELF. VSS. PT WAS VERY AGITATED AND KEPT REPEATING THAT THEY WANTED TO LEAVE AND REPEATEDLY KEPT ATTEMPTING OOB UNSAFELY. SCHEDULED DOSE OF SEROQUEL GIVEN WHICH DID NOT SEEM TO DECREASE AGITATION SO SECOND PRN DOSE SEROQUEL GIVEN AFTER TALKING TO PT POA DAUGHTER LEW WHO WAS OK WITH A SECOND DOSE. THE SECOND DOSE RELIEVED PT AGITATION AND PT SLEPT FOR MOST OF SHIFT AFTERWARDS. PT CURRENTLY AWAITING APPROVAL FOR SNF PLACEMENT. PT CURRENTLY RESTING WITH BED ALARM ON, BED IN LOWEST POSITION, AND CALL LIGHT WITHIN REACH.
[2024-06-13 05:32] VITALS: BP 120/67
[2024-06-13 06:28] LABS: BASOPHILS ABSOLUTE AUTO 0.03 K/mm3 (0.00-0.23); BASOPHILS PERCENT AUTO 1 % (0-2); EOSINOPHILS ABSOLUTE AUTO 0.43 K/mm3 (0.00-0.68); EOSINOPHILS PERCENT AUTO 7 % (0-6); Hemoglobin 11.5 g/dL (13.5-17.5); IMMATURE GRAN ABSOLUTE AUTO 0.04 K/mm3 (0.00-0.10); IMMATURE GRAN PERCENT AUTO 1 % (0-1); LYMPHOCYTES ABSOLUTE AUTO 1.61 K/mm3 (0.84-5.20); LYMPHOCYTES PERCENT AUTO 26 % (21-46); MONOCYTES ABSOLUTE AUTO 0.66 K/mm3 (0.16-1.47); MONOCYTES PERCENT AUTO 11 % (4-13); Mean Corpuscular HGB 30.4 pg (26.0-34.0); Mean Corpuscular HGB Conc 33.8 g/dL (31.5-36.5); Mean Corpuscular Volume 90 fL (80-100); Mean Platelet Volume 9.5 fL (9.1-12.4); NEUTROPHILS ABSOLUTE AUTO 3.47 K/mm3 (1.96-9.15); NEUTROPHILS PERCENT AUTO 56 % (41-73); Platelet Count 296 K/mm3 (150-400); RDW Coefficient Variation 13.2 % (11.7-14.2); RDW Standard Deviation 43.2 fL (35.1-46.3); Red Blood Cell Count 3.78 M/mm3 (4.30-5.90); White Blood Cell Count 6.24 K/mm3 (4.00-11.30)
[2024-06-13 06:40] LABS: Albumin, Blood 2.9 g/dL (3.4-5.0); Albumin/Globulin Ratio 0.9 (0.8-1.8); Bilirubin, Total 0.5 mg/dL (0.1-1.0); Bun/Creatinine Ratio 14.7 (12.0-20.0); Calcium, Blood 8.8 mg/dL (8.5-10.1); Creatinine, Blood 0.68 mg/dL (0.60-1.20); Globulin, Blood 3.3 g/dL (2.2-4.0); Potassium, Blood 3.9 mmol/L (3.5-5.5); Total Protein, Blood 6.2 g/dL (6.4-8.2)
[2024-06-13 07:42] VITALS: BP 126/76
[2024-06-13] MEDS ORDERED: Fluconazole 100 MG Tab PO SCH (13:50)
[2024-06-13 14:57] VITALS: BP 124/60
--- NOTE | 2024-06-13 17:23 | NUR ---
SHIFT SUMMARY PATIENT ABLE TO AMBULATE WITH ASSISTANCE IN ROOM TODAY. US PERFORMED, WAITING FOR RESULTS. GIVEN ANTIFUNGAL MED PER MAR, TOLERATING WELL. CONTINUES ON DROPLET ISOLATION. NO IV ACCESS. FAMILY IN ROOM THROUGHOUT SHIFT. A/O 2-3. CALL LIGHT IN REACH, CARES ONGOING.
[2024-06-13 19:22] VITALS: BP 113/58
[2024-06-14 03:23] VITALS: BP 131/64
--- NOTE | 2024-06-14 04:50 | NUR ---
SHIFT SUMMARY NOC PT A/O TO SELF. VSS. HAD SOME AGITATION AT BEGINNING OF SHIFT ATTEMPTING OOB, AND GIVEN DOSES OF SEROQUEL. WAS THEN PLEASANT AND COOPERATIVE FOR REMAINDER OF SHIFT. PT STILL AWAITING SNF PLACEMENT. PT CURRENTLY RESTING WITH BED ALARM ON, BED IN LOWEST POSITION, AND CALL LIGHT WITHIN REACH.
[2024-06-14 07:59] VITALS: BP 140/80
[2024-06-14] MEDS ORDERED: Nystatin 100,000 Unit/GM CREAM 15 GM TOP PRN (12:10)
[2024-06-14 12:29] LABS: CORTISOL, FREE BY ED/LC-MS/MS 0.95 ug/dL
[2024-06-14 15:28] VITALS: BP 102/63
--- NOTE | 2024-06-14 17:32 | NUR ---
PT QUITE PLEASANT TODAY. ALERT TO SELF, DAUGHTER NAME, PLACE. REMAINS STRONG ENOUGH TO BE ABLE TO GET UP WITH FWW AND STAND TO URINATE. DAUGHTER AND SISTER IN TO VISIT TODAY. UPDATED DR WITH LIGHTLY SOFT B/P THIS AUREA. NO NEW CHANGES. BED IN LOW POSITION, CALL LITE IN REACH, BED ALARM ON FOR SAFETY/
[2024-06-14 21:15] VITALS: BP 120/68
[2024-06-15 05:29] VITALS: BP 132/84
[2024-06-15 06:16] LABS: BASOPHILS ABSOLUTE AUTO 0.05 K/mm3 (0.00-0.23); BASOPHILS PERCENT AUTO 1 % (0-2); EOSINOPHILS ABSOLUTE AUTO 0.52 K/mm3 (0.00-0.68); EOSINOPHILS PERCENT AUTO 8 % (0-6); Hematocrit 37.2 % (37.0-53.0); Hemoglobin 12.7 g/dL (13.5-17.5); IMMATURE GRAN ABSOLUTE AUTO 0.04 K/mm3 (0.00-0.10); IMMATURE GRAN PERCENT AUTO 1 % (0-1); LYMPHOCYTES ABSOLUTE AUTO 1.77 K/mm3 (0.84-5.20); LYMPHOCYTES PERCENT AUTO 26 % (21-46); MONOCYTES ABSOLUTE AUTO 0.57 K/mm3 (0.16-1.47); MONOCYTES PERCENT AUTO 9 % (4-13); Mean Corpuscular HGB 30.4 pg (26.0-34.0); Mean Corpuscular HGB Conc 34.1 g/dL (31.5-36.5); Mean Corpuscular Volume 89 fL (80-100); Mean Platelet Volume 9.5 fL (9.1-12.4); NEUTROPHILS ABSOLUTE AUTO 3.75 K/mm3 (1.96-9.15); NEUTROPHILS PERCENT AUTO 56 % (41-73); Platelet Count 343 K/mm3 (150-400); RDW Coefficient Variation 13.2 % (11.7-14.2); RDW Standard Deviation 42.6 fL (35.1-46.3); Red Blood Cell Count 4.18 M/mm3 (4.30-5.90)
[2024-06-15 06:41] LABS: Albumin, Blood 3.3 g/dL (3.4-5.0); Albumin/Globulin Ratio 0.9 (0.8-1.8); Bilirubin, Total 0.4 mg/dL (0.1-1.0); Bun/Creatinine Ratio 16.6 (12.0-20.0); Calcium, Blood 9.2 mg/dL (8.5-10.1); Creatinine, Blood 0.66 mg/dL (0.60-1.20); Globulin, Blood 3.7 g/dL (2.2-4.0); Potassium, Blood 4.4 mmol/L (3.5-5.5)
[2024-06-15 07:43] VITALS: BP 135/63
[2024-06-15] MEDS ORDERED: Sod Phosphate/Sod Biphosphate 132 ML BTL PR PRN (13:55)
[2024-06-15 15:47] VITALS: BP 121/67
--- NOTE | 2024-06-15 16:42 | NUR ---
SHIFT SUMMARY PT AXO TO SELF AND FAMILY. VSS. PT HAD AN EPISODE OF STOOL THAT HE COULD NOT PASS. THIS NURSE HAS TO CALL DR ESTRADA TO DISCUSS POSSIBLE INTERVENTIONS. ENEMA ORDERED. PT PASSED 3 HARD AND LARGE ROUND STOOLS. NO IV IN PLACE. PT UP WITH 1 ASSIST WITH FWW AND GB. PT ASSINIBOINE AND [place]BES, PLEASANT AND COOPERATIVE WITH CARE. SPEECH THERAPY WORKING WITH PATIENT AT THIS TIME. BED IN LOW POSITION, CALL LIGHT WITHIN REACH. PT UP TO CHAIR FOR MEALS.
[2024-06-15 19:31] VITALS: BP 129/62
[2024-06-16 06:04] VITALS: BP 115/63
[2024-06-16 06:57] LABS: Albumin, Blood 3.2 g/dL (3.4-5.0); Albumin/Globulin Ratio 0.8 (0.8-1.8); Bilirubin, Total 0.4 mg/dL (0.1-1.0); Bun/Creatinine Ratio 14.9 (12.0-20.0); Calcium, Blood 9.3 mg/dL (8.5-10.1); Creatinine, Blood 0.8 mg/dL (0.60-1.20); Globulin, Blood 3.9 g/dL (2.2-4.0); Potassium, Blood 4.5 mmol/L (3.5-5.5); Total Protein, Blood 7.1 g/dL (6.4-8.2)
[2024-06-16 07:40] VITALS: BP 132/73
--- NOTE | 2024-06-16 08:05 | NUR ---
SALES REPRESENTATIVE SUMMARY PT A/OX2. MARKED CONFUSION. PT NOT ABLE TO STATE WHERE HE IS AT. PT PRESENTING WITH SOME IMPUSIVITY. ATTEMPTING TO GET OUT OF BED AND STATING HE WANTS TO GO FOR A WALK DESPITE BEING VERY WEAK WITH IMPAIRED GAIT--SHUFFLE. PT REQUIRING DIRECTION AND ASSIST TO FOLLOW DIRECTION. NO ACUTE CHANGES. PT PRESENTING WITH RESTLESS MILDLY AGITATED BEHAVIOR AT START OF NIGHT. PT GIVEN SCHEDULED AND PRN DOSE OF SEROQUEL WITH GOOD EFFECT. CALL LIGHT IN REACH. BED ALARM IN PLACE. REGULAR INTERVAL ROUNDING COMPLETE TO ASSESS AND MEET PT NEEDS.
[2024-06-16 15:59] VITALS: BP 122/67
--- NOTE | 2024-06-16 18:20 | NUR ---
SHIFT SUMMARY PT A&OX2 W/ CONFUSION, VSS, AMB W/ ASSIST, TOLERATING PO, VOIDING, AND DENIED PAIN. PT IMPULSIVE T/O SHIFT AND ATTEMPTED OOB UNSAFELY THAT WAS MANAGED W/ THE BED AND CHAIR ALARM. NO ACUTE CHANGES. CALL LIGHT WITHIN REACH.
[2024-06-16 19:54] VITALS: BP 112/58
[2024-06-17 03:53] VITALS: BP 115/73
[2024-06-17 06:02] LABS: Albumin, Blood 3.1 g/dL (3.4-5.0); Albumin/Globulin Ratio 0.9 (0.8-1.8); Bilirubin, Total 0.4 mg/dL (0.1-1.0); Bun/Creatinine Ratio 20.6 (12.0-20.0); Calcium, Blood 8.6 mg/dL (8.5-10.1); Creatinine, Blood 0.68 mg/dL (0.60-1.20); Globulin, Blood 3.6 g/dL (2.2-4.0); Potassium, Blood 4.3 mmol/L (3.5-5.5); Total Protein, Blood 6.7 g/dL (6.4-8.2)
--- NOTE | 2024-06-17 06:47 | NUR ---
SHIFT SUMMARY. PATIENT IS A&OX2, FORGETFUL AND PLEASANTLY CONFUSED. PATIENT RESTED WELL AT BEGINNING OF SHIFT-RESTING WITH RESPIRATIONS EQUAL AND UNLABORED. PATIENT IS IMPULSIVE AT TIMES, DOES NOT CALL APPROPRIATELY AND PUSHES THE LIGHT BECAUSE ITS "SOMETHING TO DO". DENIES PAIN. BED IS LOCKED IN THE LOWEST POSITION WITH CALL LIGHT IN REACH.
[2024-06-17 07:41] VITALS: BP 126/85
[2024-06-17 14:45] VITALS: BP 110/65
[2024-06-17] MEDS ORDERED: ESCI10 PO (14:59)
[2024-06-17] MEDS ORDERED: TAMS.4ER PO (14:59)
[2024-06-17] MEDS ORDERED: CEFP200 PO (14:59)
[2024-06-17] MEDS ORDERED: VISBIOME 112.51 EACH PO (14:59)
[2024-06-17] MEDS ORDERED: FOLI1 PO (14:59)
--- NOTE | 2024-06-17 15:10 | NUR ---
DISCHARGE NOTE PT DISCHARGED HOME AT 1505. PT'S DAUGHTER JOSE PROVIDED W/ VERBAL AND WRITTEN INSTRUCTIONS AND REPORTED UNDERSTANDING. PT A&OX2, VSS, AMB W/ ASSIST, TOLERATING PO, VOIDING, AND DENIED PAIN. HARD SCRIPT GIVEN. PT ESCOURTED OUT VIA W/C BY ESTHER CHAND.
== END 2024-06-17 15:10 | disposition home health service (06) | DRG 871 ==
LOC: ER 11:20 → MEDS 18:36
PROVIDERS: Emergency Medicine; Family Medicine; ADMIT Family Medicine
DX: A41.9 Sepsis, unspecified organism (principal); G92.8 Other toxic encephalopathy; J18.9 Pneumonia, unspecified organism; E87.1 Hypo-osmolality and hyponatremia; E44.0 Moderate protein-calorie malnutrition; K80.10 Calculus of gallbladder with chronic cholecystitis without obstruction; F03.911 Unspecified dementia, unspecified severity, with agitation; R65.20 Severe sepsis without septic shock; I10 Essential (primary) hypertension; E87.6 Hypokalemia; E88.09 Other disorders of plasma-protein metabolism, not elsewhere classified; E86.0 Dehydration; D64.9 Anemia, unspecified; R73.9 Hyperglycemia, unspecified; I83.93 Asymptomatic varicose veins of bilateral lower extremities; R74.01 Elevation of levels of liver transaminase levels; B35.0 Tinea barbae and tinea capitis; B35.1 Tinea unguium; B97.89 Other viral agents as the cause of diseases classified elsewhere; N40.0 Benign prostatic hyperplasia without lower urinary tract symptoms; J45.909 Unspecified asthma, uncomplicated; Z89.022 Acquired absence of left finger(s); Z89.021 Acquired absence of right finger(s); Z98.890 Other specified postprocedural states; Z88.6 Allergy status to analgesic agent; Z88.8 Allergy status to other drugs, medicaments and biological substances; Z79.2 Long term (current) use of antibiotics; Z79.899 Other long term (current) drug therapy; Z68.29 Body mass index [BMI] 29.0-29.9, adult
CPT/HCPCS: 0202U; 0241U; 36415; 70450; 71045; 76705; 80048; 80053; 82140; 82530; 82607; 82728; 82746; 82803; 82977; 83540; 83550; 83605; 83735; 83880; 83930; 84100; 84145; 84439; 84443; 84484; 85025; 85045; 87040; 92526; 92610; 93005; 93010; 96360; 97110; 97116; 97162; 97165; 97530; 97535; 99285-25; A9270; J0696; J1650; J3010; J3480; J7030; J7060; J7120

== ENCOUNTER 2024-06-27 15:10 | Emergency (ER) | payer OTHER ==
[~2024-06-27] VITALS: Ht 177.8 cm; Wt 108.9 kg
[~2024-06-27 15:10] MED LIST changes: +CEFP200 PO; +DOXYCYCLINE HY100 M1 PO; +ESCI10 PO; +FOLI1 PO; +LORAZEPAM0.5 MG PO; +MEMANTINE HCL511 PO; +TAMS.4ER PO; +VISBIOME 112.51 EACH PO
[2024-06-27 16:23] VITALS: BP 114/85
== END 2024-06-27 18:23 | disposition home or self-care (01) ==
LOC: ER 15:10
DX: M79.18 Myalgia, other site (principal); F03.90 Unspecified dementia, unspecified severity, without behavioral disturbance, psychotic disturbance, mood disturbance, and anxiety; J45.909 Unspecified asthma, uncomplicated; I10 Essential (primary) hypertension; N40.0 Benign prostatic hyperplasia without lower urinary tract symptoms; F17.210 Nicotine dependence, cigarettes, uncomplicated; Z88.6 Allergy status to analgesic agent; Z79.899 Other long term (current) drug therapy
CPT/HCPCS: 99283

== ENCOUNTER → 2024-07-06 | Outpatient (CLI) | payer OTHER ==
[2024-07-06 15:30] LABS: BASOPHILS ABSOLUTE AUTO 0.04 K/mm3 (0.00-0.23); BASOPHILS PERCENT AUTO 1 % (0-2); EOSINOPHILS ABSOLUTE AUTO 0.55 K/mm3 (0.00-0.68); EOSINOPHILS PERCENT AUTO 10 % (0-6); Hematocrit 36.3 % (37.0-53.0); Hemoglobin 11.9 g/dL (13.5-17.5); IMMATURE GRAN ABSOLUTE AUTO 0.01 K/mm3 (0.00-0.10); IMMATURE GRAN PERCENT AUTO 0 % (0-1); LYMPHOCYTES ABSOLUTE AUTO 1.26 K/mm3 (0.84-5.20); LYMPHOCYTES PERCENT AUTO 23 % (21-46); MONOCYTES ABSOLUTE AUTO 0.47 K/mm3 (0.16-1.47); MONOCYTES PERCENT AUTO 9 % (4-13); Mean Corpuscular HGB 30.2 pg (26.0-34.0); Mean Corpuscular HGB Conc 32.8 g/dL (31.5-36.5); Mean Corpuscular Volume 92 fL (80-100); Mean Platelet Volume 9.7 fL (9.1-12.4); NEUTROPHILS ABSOLUTE AUTO 3.18 K/mm3 (1.96-9.15); NEUTROPHILS PERCENT AUTO 58 % (41-73); Platelet Count 219 K/mm3 (150-400); RDW Standard Deviation 47.6 fL (35.1-46.3); Red Blood Cell Count 3.94 M/mm3 (4.30-5.90); White Blood Cell Count 5.51 K/mm3 (4.00-11.30)
[2024-07-06 15:49] LABS: Albumin, Blood 3.4 g/dL (3.4-5.0); Albumin/Globulin Ratio 0.9 (0.8-1.8); Bilirubin, Direct 0.1 mg/dL (0.0-0.3); Bilirubin, Indirect 0.2 mg/dL (0.1-0.7); Bilirubin, Total 0.3 mg/dL (0.1-1.0); Calcium, Blood 9.3 mg/dL (8.5-10.1); Creatinine, Blood 0.81 mg/dL (0.60-1.20); Free Thyroxine 0.88 ng/dL (0.70-1.60); Globulin, Blood 3.6 g/dL (2.2-4.0); Potassium, Blood 4.2 mmol/L (3.5-5.5); Thyroid Stimulating Hormone 1.424 uIU/mL (0.360-4.800)
[2024-07-06 16:00] LABS: Albumin, Blood 3.4 g/dL (3.4-5.0); Anion Gap 14 mmol/L (3-11); Blood Urea Nitrogen 13 mg/dL (8-24); Bun/Creatinine Ratio 15.7 (12.0-20.0); CO2, Blood 28 mmol/L (21-32); Calcium, Blood 9.2 mg/dL (8.5-10.1); Chloride, Blood 104 mmol/L (98-108); Creatinine, Blood 0.83 mg/dL (0.60-1.20); Glomerular Filtration Rate 91 (60-); Glucose, Blood 111 mg/dL (70-99); Phosphorus, Blood 3.4 mg/dL (2.5-4.9); Potassium, Blood 4.2 mmol/L (3.5-5.5); Sodium, Blood 142 mmol/L (136-145)
== END ==
LOC: LAB SHORT 14:45 → LAB 14:45
PROVIDERS: Family Medicine; Internal Medicine Nephrology
DX: R94.5 Abnormal results of liver function studies (principal); R41.3 Other amnesia; N18.30 Chronic kidney disease, stage 3 unspecified; M10.9 Gout, unspecified; N20.0 Calculus of kidney; N40.1 Benign prostatic hyperplasia with lower urinary tract symptoms
CPT/HCPCS: 80053; 80069; 82248; 82607; 82746; 84153; 84439; 84443; 85018; 85025

== ENCOUNTER 2024-09-02 15:06 | Emergency (ER) | payer OTHER ==
[~2024-09-02] VITALS: Ht 177.8 cm; Wt 113.4 kg
[2024-09-02 15:40] VITALS: BP 137/75
== END 2024-09-02 15:46 | disposition home or self-care (01) ==
LOC: ER 15:06
DX: Z00.8 Encounter for other general examination (principal); I10 Essential (primary) hypertension; J45.909 Unspecified asthma, uncomplicated; F17.210 Nicotine dependence, cigarettes, uncomplicated; Z79.899 Other long term (current) drug therapy; Z88.6 Allergy status to analgesic agent; Z88.5 Allergy status to narcotic agent
CPT/HCPCS: 99282